=== PATIENT | male | born 1990 | race Caucasian/White ===

== ENCOUNTER 2018-11-14 20:17 | Emergency (ER) | payer BC, OTHER ==
[~2018-11-14] VITALS: Ht 177.8 cm; Wt 91.0 kg
[2018-11-14 20:25] VITALS: BP 141/85
== END 2018-11-14 22:41 | disposition home or self-care (01) ==
LOC: ED 21:15
DX: S91.312A Laceration without foreign body, left foot, initial encounter (principal); X58.XXXA Exposure to other specified factors, initial encounter; Y93.89 Activity, other specified; Y92.89 Other specified places as the place of occurrence of the external cause; Y99.8 Other external cause status
CPT/HCPCS: 12042; 73630; 90471; 90715; 99284; J3490